=== PATIENT | female | born 1990 | race Caucasian/White ===

== ENCOUNTER → 2017-08-25 | Emergency (ER) | payer OTHER ==
[~2017-08-25] VITALS: Ht 162.6 cm; Wt 65.3 kg
[~2017-08-25] MED LIST: ZOFRAN8 MG PO
== END | disposition home or self-care (01) ==
LOC: ER 22:52
DX: O20.0 Threatened abortion (principal); Z34.81 Encounter for supervision of other normal pregnancy, first trimester

== ENCOUNTER 2018-02-07 18:33 | Outpatient (CLI) | payer OTHER ==
[2018-02-07] MEDS ORDERED: PRENATAL 19 TA1 EACH PO (19:37)
[2018-02-07] MEDS ORDERED: DIALYVITE 800-1 EACH PO (19:37)
== END 2018-02-08 11:34 ==
LOC: OBS/DEL 18:33
DX: O26.853 Spotting complicating pregnancy, third trimester (principal); O23.43 Unspecified infection of urinary tract in pregnancy, third trimester; Z34.83 Encounter for supervision of other normal pregnancy, third trimester

== ENCOUNTER 2018-04-06 03:41 | Inpatient (IN) | payer OTHER ==
[~2018-04-06] VITALS: Ht 160 cm; Wt 85.3 kg
[~2018-04-06 03:41] MED LIST changes: +DIALYVITE 800-1 EACH PO; +PRENATAL 19 TA1 EACH PO
== END 2018-04-08 13:07 | disposition home or self-care (01) | DRG 807 ==
LOC: LDR 03:41 → OB/GYN 03:41
PROC: 10E0XZZ Delivery of Products of Conception, External Approach (ICD-10-PCS; principal; 2018-04-06)
PROC: 4A1HXCZ Monitoring of Products of Conception, Cardiac Rate, External Approach (ICD-10-PCS; 2018-04-06)
DX: O80 Encounter for full-term uncomplicated delivery (principal); Z37.0 Single live birth; Z3A.39 39 weeks gestation of pregnancy

== ENCOUNTER 2020-05-14 02:44 | Outpatient (CLI) | payer OTHER ==
[2020-05-14] MEDS ORDERED: PRILOSEC OTC20 MG PO (03:04)
== END 2020-05-14 11:10 | disposition home or self-care (01) ==
LOC: OBS/DEL 02:44
PROVIDERS: ATTEND Specialist
DX: O26.893 Other specified pregnancy related conditions, third trimester (principal); R10.13 Epigastric pain; Z20.828 Contact with and (suspected) exposure to other viral communicable diseases

== ENCOUNTER 2020-05-23 21:29 | Inpatient (IN) | payer OTHER ==
[~2020-05-23] VITALS: Ht 160 cm; Wt 87.1 kg
[~2020-05-23 21:29] MED LIST changes: +PRILOSEC OTC20 MG PO
== END 2020-05-26 11:33 | disposition home or self-care (01) | DRG 807 ==
LOC: LDR 21:29 → OB/GYN 05-24 14:39
PROVIDERS: ADMIT Specialist; ATTEND Specialist
PROC: 10E0XZZ Delivery of Products of Conception, External Approach (ICD-10-PCS; principal; 2020-05-24)
PROC: 10907ZC Drainage of Amniotic Fluid, Therapeutic from Products of Conception, Via Natural or Artificial Opening (ICD-10-PCS; 2020-05-24)
PROC: 3E033VJ Introduction of Other Hormone into Peripheral Vein, Percutaneous Approach (ICD-10-PCS; 2020-05-24)
PROC: 4A1HXFZ Monitoring of Products of Conception, Cardiac Rhythm, External Approach (ICD-10-PCS; 2020-05-24)
DX: O80 Encounter for full-term uncomplicated delivery (principal); Z37.0 Single live birth; Z3A.40 40 weeks gestation of pregnancy; Z20.822 Contact with and (suspected) exposure to COVID-19